=== PATIENT | female | born 1965 | race Caucasian/White ===

== ENCOUNTER 2016-09-02 12:07 | Day surgery (SDC) | payer BC ==
[2016-08-27 10:32] VITALS: BMI 24.9
[2016-09-02] MEDS ORDERED: LIDOCAINE HCL 1%, 10 MG/ML (20ML VIAL) ONE (13:04)
[2016-09-02] MEDS ORDERED: TRIAMCINOLONE ACET 40MG/1ML VIAL ONE (13:04)
[2016-09-02] MEDS ORDERED: BUPIVACAINE HCL/PF 2.5 MG/ML - 30 ML VIAL IJ ONE (13:09)
[2016-09-02] MEDS ORDERED: MIDAZOLAM HCL 2 MG/2 ML SINGLE DOSE VIAL ONE ×2 (13:13→13:23)
[2016-09-02] MEDS ORDERED: PROPOFOL 20 ML ONE (13:18)
[2016-09-02 15:07] VITALS: PULSE 71
[2016-09-02 15:11] VITALS: BP 128/84; TEMP 98
--- NOTE | 2016-10-30 08:27 | OP ---
DATE OF OPERATION: 09/02/2016 PROCEDURE PERFORMED: Cervical Epidural Steroid Injection. DIAGNOSIS/INDICATION: Upper extremity radiculopathy. CONSENT: The procedure was explained and all questions answered. Risks discussed include bleeding, allergy, infection, and inadvertent puncture of the dura. Informed, written consent was obtained. RIVER RAT: Malina Fonseca MD TECHNIQUE: The patient was prepped and draped in the usual sterile fashion. Using fluoroscopic guidance, the C5-C6 interspinous space was localized, and the overlying skin and subcutaneous soft tissues were locally anesthetized with 1% Lidocaine. A 20-gauge epidural needle was advanced into the epidural space using [id number] technique. Epidurogram was performed using 5 mL Omnipaque contrast injected into the epidural space to verify needle tip position and to visualize epidural space and nerve root in AP and lateral views. Contrast spread was seen. A lateral spot radiograph was obtained. Depo-Medrol of 40 mg and 2 mL normal saline were injected into the epidural space and the needle was removed. The procedure was well tolerated. There were no immediate complications. Nonionic contrast was used because of the possibility of intrathecal administration. POSTOPERATIVE DIAGNOSIS: Cervical epidural steroid injection for cervical radiculopathy. MALINA FONSECA M.D. MICHELLE/[id number]
== END 2016-09-02 14:54 | disposition home or self-care (01) ==
LOC: FASU 12:07
PROVIDERS: ATTEND Pain Medicine Interventional Pain Medicine
PROC: 3E0R3CZ (ICD-10-PCS; 2016-09-02)
PROC: 00HU33Z Insertion of Infusion Device into Spinal Canal, Percutaneous Approach (ICD-10-PCS; 2016-09-02)
PROC: 3E0R33Z Introduction of Anti-inflammatory into Spinal Canal, Percutaneous Approach (ICD-10-PCS; principal; 2016-09-02 13:25)
DX: M50.20 Other cervical disc displacement, unspecified cervical region (principal); M54.12 Radiculopathy, cervical region
CPT/HCPCS: 72050-TC

== ENCOUNTER 2016-12-09 12:41 | Day surgery (SDC) | payer BC ==
[2016-11-28 13:28] VITALS: BMI 26.6
[2016-12-09] MEDS ORDERED: TRIAMCINOLONE ACET 40MG/1ML VIAL ONE (13:00)
[2016-12-09] MEDS ORDERED: LIDOCAINE HCL 1%, 10 MG/ML (20ML VIAL) ONE (13:01)
[2016-12-09] MEDS ORDERED: SODIUM BICARBONATE 8.4% 50 MEQ/50 ML VIAL ONE (13:01)
[2016-12-09 13:13] VITALS: PULSE 73
[2016-12-09] MEDS ORDERED: MIDAZOLAM HCL 2 MG/2 ML SINGLE DOSE VIAL ONE (13:39)
[2016-12-09] MEDS ORDERED: PROPOFOL 20 ML ONE (13:43)
[2016-12-09 15:45] VITALS: TEMP 98.2
[2016-12-09 15:48] VITALS: BP 124/88
--- NOTE | 2016-12-17 19:41 | OP ---
DATE OF OPERATION: 12/09/2016 PROCEDURE PERFORMED: Lumbar Epidural Steroid Injection. DIAGNOSIS/INDICATION: Lower extremity radiculopathy. CONSENT: The procedure was explained and all questions answered. Risks discussed include bleeding, allergy, infection, and inadvertent puncture of the dura. Informed, written consent was obtained. BANK ACCOUNTANT: Malina Fonseca MD TECHNIQUE: The patient was prepped and draped in the usual sterile fashion. Using fluoroscopic guidance, the L3-4 interspinous space was localized, and the overlying skin and subcutaneous soft tissues were locally anesthetized with 1% Lidocaine. A 20-gauge epidural needle was advanced into the epidural space using [id number] technique. Epidurogram was performed using 5 mL Omnipaque contrast injected into the epidural space to verify needle tip position and to visualize epidural space and nerve root in AP and lateral views. Contrast spread was seen. A lateral spot radiograph was obtained. Depo-Medrol of 40 mg and 2 mL normal saline were injected into the epidural space and the needle was removed. The procedure was well tolerated. There were no immediate complications. Nonionic contrast was used because of the possibility of intrathecal administration. POSTOPERATIVE DIAGNOSIS: Lumbar epidural steroid injection for lumbar radiculopathy. MALINA FONSECA M.D. MICHELLE/[id number]
== END 2016-12-09 15:55 | disposition home or self-care (01) ==
LOC: FASU 12:41
PROVIDERS: ATTEND Pain Medicine Interventional Pain Medicine
PROC: B01B1ZZ Fluoroscopy of Spinal Cord using Low Osmolar Contrast (ICD-10-PCS; 2016-12-09)
PROC: 3E0R33Z Introduction of Anti-inflammatory into Spinal Canal, Percutaneous Approach (ICD-10-PCS; principal; 2016-12-09 14:49)
DX: M54.16 Radiculopathy, lumbar region (principal)
CPT/HCPCS: 72100-TC; 76000-TC; 84703

== ENCOUNTER 2017-06-23 11:40 | Day surgery (SDC) | payer BC, OTHER ==
[2017-06-18 17:24] VITALS: BMI 25.7
[2017-06-23] MEDS ORDERED: SODIUM BICARBONATE 8.4% 50 MEQ/50 ML VIAL ONE (13:11)
[2017-06-23] MEDS ORDERED: TRIAMCINOLONE ACET 40MG/1ML VIAL ONE (13:11)
[2017-06-23] MEDS ORDERED: LIDOCAINE HCL 1%, 10 MG/ML (20ML VIAL) ONE (13:11)
[2017-06-23] MEDS ORDERED: SODIUM CHLORIDE 0.9% P/F 10 ML VIAL IJ ONE (13:11)
[2017-06-23] MEDS ORDERED: MIDAZOLAM HCL 2 MG/2 ML SINGLE DOSE VIAL ONE (13:20)
[2017-06-23] MEDS ORDERED: PROPOFOL 20 ML ONE (14:42)
[2017-06-23] MEDS ORDERED: ONDANSETRON 4 MG/2 ML VIAL IVPUSH PRN (14:49)
[2017-06-23] MEDS ORDERED: ACETAMINOPHEN 325 MG TABLET (FP) PO PRN (14:49)
[2017-06-23] MEDS ORDERED: diphenhydrAMINE HCL 25 MG CAPSULE (FP) PO ONE (14:50)
[2017-06-23] MEDS ORDERED: LACTATED RINGERS SOLUTION 1,000 ML IV SCH (15:00)
[2017-06-23 15:08] VITALS: TEMP 97.8
[2017-06-23 15:12] VITALS: BP 151/91; PULSE 84
--- NOTE | 2017-06-23 23:34 | OP ---
DATE OF OPERATION: 06/23/2017 PROCEDURE PERFORMED: Cervical Epidural Steroid Injection. DIAGNOSIS/INDICATION: Upper extremity radiculopathy. CONSENT: The procedure was explained and all questions answered. Risks discussed include bleeding, allergy, infection, and inadvertent puncture of the dura. Informed, written consent was obtained. DROP CREW LABORER: Malina Fonseca MD TECHNIQUE: The patient was prepped and draped in the usual sterile fashion. Using fluoroscopic guidance, the C5-6 interspinous space was localized, and the overlying skin and subcutaneous soft tissues were locally anesthetized with 1% Lidocaine. A 20-gauge epidural needle was advanced into the epidural space using [id number] technique. Epidurogram was performed using 5 mL Omnipaque contrast injected into the epidural space to verify needle tip position and to visualize epidural space and nerve root in AP and lateral views. Contrast spread was seen. A lateral spot radiograph was obtained. Depo-Medrol of 40 mg and 2 mL normal saline were injected into the epidural space and the needle was removed. The procedure was well tolerated. There were no immediate complications. Nonionic contrast was used because of the possibility of intrathecal administration. POSTOPERATIVE DIAGNOSIS: Cervical epidural steroid injection for cervical radiculopathy. MALINA FONSECA M.D. MICHELLE/[id number]
== END 2017-06-23 15:15 | disposition home or self-care (01) ==
LOC: FASU 11:40
PROVIDERS: ATTEND Pain Medicine Interventional Pain Medicine
PROC: 3E0R33Z Introduction of Anti-inflammatory into Spinal Canal, Percutaneous Approach (ICD-10-PCS; principal; 2017-06-23 14:06)
DX: M54.12 Radiculopathy, cervical region (principal)
CPT/HCPCS: 72050-TC; 76000-TC